=== PATIENT | male | born 1975 | race African-American/Black ===

== ENCOUNTER 2018-01-16 12:33 | Inpatient (IN) | END 2018-01-20 13:20 | disposition home or self-care (01) | DRG 202 ==

== ENCOUNTER 2018-02-10 13:13 | Emergency (ER) | END 2018-02-10 17:34 | disposition home or self-care (01) ==

== ENCOUNTER 2018-02-25 23:40 | Observation (INO) | END 2018-02-26 14:45 | disposition home or self-care (01) ==